=== PATIENT | male | born 1995 | race Caucasian/White ===

== ENCOUNTER 2016-11-26 22:10 | Emergency (ER) | payer OTHER ==
[2016-11-26] MEDS ORDERED: KETOROLAC 60 MG/2 ML VIAL IM STA (22:53)
[2016-11-26] MEDS ORDERED: KETOROLAC 60 MG/2 ML VIAL ONE (23:02)
== END 2016-11-27 00:38 | disposition home or self-care (01) ==
DX: N20.0 Calculus of kidney (principal); Z87.442 Personal history of urinary calculi; K57.30 Diverticulosis of large intestine without perforation or abscess without bleeding